=== PATIENT | female | born 1950 | race Caucasian/White ===

== ENCOUNTER → 2019-01-07 | Outpatient (CLI) | payer MEDICARE ==
[~2019-01-07] MED LIST: LEVO175T5 PO; TRAM50TA2 PO
== END | disposition home or self-care (01) ==
LOC: CFH 07:45
PROVIDERS: ATTEND Internal Medicine Cardiovascular Disease
DX: I08.3 Combined rheumatic disorders of mitral, aortic and tricuspid valves (principal); I48.0 Paroxysmal atrial fibrillation
CPT/HCPCS: 78452; 93017; 93306; A9502

== ENCOUNTER 2019-10-10 08:41 | Emergency (ER) | payer MEDICARE ==
[~2019-10-10] VITALS: Ht 162.6 cm; Wt 58.0 kg
[2019-10-10 08:42] VITALS: BP 159/50
[2019-10-10] MEDS ORDERED: OXYMETAZOLINE NASAL SPRAY 0.05%,30ML ONE (09:15)
[2019-10-10] MEDS ORDERED: TRANEXAMIC ACID 100 MG/ML, 10ML ONE (09:21)
[2019-10-10] MEDS ORDERED: OXYMETAZOLINE NASAL SPRAY 0.05%,30ML NAS ONE (09:30)
[2019-10-10 10:05] LABS: BASOPHILS # (AUTO) 0.04 x10^3/uL (0-0.1); BASOPHILS % (AUTO) 1 % (0-1); EOSINOPHILS # (AUTO) 0.22 x10^3/uL (0-0.4); EOSINOPHILS % (AUTO) 3 % (1-7); LYMPHOCYTES # (AUTO) 1.86 x10^3/uL (1-3.4); LYMPHOCYTES % (AUTO) 28 % (22-44); MD NO; MEAN CORPUSCULAR HEMOGLOBIN 30.4 pg (27.0-34.8); MEAN CORPUSCULAR HGB CONC 33.3 g/dL (32.4-35.8); MEAN CORPUSCULAR VOLUME 91.3 fL (80-100); MEAN PLATELET VOLUME 7.5 fL (7.4-10.4); MONOCYTES # (AUTO) 0.39 x10^3/uL (0.2-0.8); MONOCYTES % (AUTO) 6 % (2-9); NEUTROPHILS # (AUTO) 4.09 x10^3/uL (1.8-6.8); NEUTROPHILS % (AUTO) 62 % (42-75); PLATELET COUNT 326 x10^3/uL (130-400); RED BLOOD COUNT 4.71 x10^6/uL (3.82-5.3); RED CELL DISTRIBUTION WIDTH 13.5 % (9.6-15.2)
[2019-10-10 10:15] LABS: INTERNATIONAL NORMALIZED RATIO 1.09 (0.93-1.1); PROTHROMBIN TIME 11.4 Seconds (9.6-11.5)
== END 2019-10-10 11:20 | disposition home or self-care (01) ==
LOC: ED 11:00
DX: R04.0 Epistaxis (principal); I48.91 Unspecified atrial fibrillation
CPT/HCPCS: 36415; 85025; 85610; 99283

== ENCOUNTER 2020-06-14 13:08 | Emergency (ER) | payer MEDICARE ==
[~2020-06-14] VITALS: Ht 162.6 cm; Wt 56.4 kg
--- NOTE | 2020-06-14 13:35 | NUR ---
patient has a long history of nose bleeds and she had surgery with Dr Queen and then she again began bleeding. they are upset at thier struggles with this and are very short tempered stating they don't want to see anyone except the ENT MD. explained very politely that they will indeed need to be seen by our ER staff.
[2020-06-14 15:02] VITALS: BP 138/78
== END 2020-06-14 15:03 | disposition home or self-care (01) ==
LOC: ED 14:45
DX: R04.0 Epistaxis (principal); I48.91 Unspecified atrial fibrillation
CPT/HCPCS: 30901; 99284

== ENCOUNTER 2020-06-15 15:19 | Outpatient (CLI) | payer MEDICARE ==
[2020-06-15 16:20] LABS: MEAN CORPUSCULAR HEMOGLOBIN 31.3 pg (27.0-34.8); MEAN CORPUSCULAR HGB CONC 32.7 g/dL (32.4-35.8); MEAN CORPUSCULAR VOLUME 95.7 fL (80-100); MEAN PLATELET VOLUME 6.6 fL (7.4-10.4); PLATELET COUNT 318 x10^3/uL (130-400); RED BLOOD COUNT 4.11 x10^6/uL (3.82-5.3); RED CELL DISTRIBUTION WIDTH 12.5 % (9.6-15.2)
[2020-06-15 16:26] LABS: ANION GAP 4 mmol/L (5-15); CALCIUM 8.7 mg/dL (8.5-10.1); CHLORIDE 101 mmol/L (98-107); CREATININE 0.89 mg/dL (0.55-1.02); INTERNATIONAL NORMALIZED RATIO 1.03 (0.93-1.1); PROTHROMBIN TIME 10.6 Seconds (9.6-11.5)
[2020-06-16] MEDS ORDERED: FLEC100T PO (09:15)
[2020-06-16] MEDS ORDERED: DILT60TA30 PO (09:15)
== END 2020-06-15 23:59 | disposition home or self-care (01) ==
LOC: RAD 15:19
PROVIDERS: ATTEND Otolaryngology
DX: S03.03XA Dislocation of jaw, bilateral, initial encounter (principal); R04.0 Epistaxis; X58.XXXA Exposure to other specified factors, initial encounter; Y93.89 Activity, other specified; Y92.89 Other specified places as the place of occurrence of the external cause; Y99.8 Other external cause status
CPT/HCPCS: 36415; 70486; 80048; 85027; 85610; 85730

== ENCOUNTER 2020-06-16 08:17 | Day surgery (SDC) | payer MEDICARE ==
[~2020-06-16] VITALS: Ht 162.6 cm; Wt 54.9 kg
[2020-06-16] MEDS ORDERED: DILT60TA30 PO (09:15)
[2020-06-16] MEDS ORDERED: FLEC100T PO (09:15)
[2020-06-16 09:28] VITALS: BP 144/70
[2020-06-16] MEDS ORDERED: CHLORHEXIDINE 15 ML UDC MM ONE (09:30)
[2020-06-16] MEDS ORDERED: LACTATED RINGERS 1,000 ML IV SCH (10:00)
[2020-06-16] MEDS ORDERED: FENTANYL PF 100 MCG/2ML ONE ×3 (10:23→12:50)
[2020-06-16] MEDS ORDERED: LIDOCAINE-MPF 2% ,5ML ONE (10:24)
[2020-06-16] MEDS ORDERED: PROPOFOL 10 MG/ML, 20ML ONE (10:24)
[2020-06-16] MEDS ORDERED: OXYMETAZOLINE NASAL SPRAY 0.05%, 15ML ONE (10:25)
[2020-06-16] MEDS ORDERED: BACITRACIN ZINC OINT 500U/GM, 0.9 GM ONE (10:25)
[2020-06-16] MEDS ORDERED: LIDOCAINE 1%-EPI 1:100K, 20ML ONE (10:25)
[2020-06-16] MEDS ORDERED: EPINEPHRINE TOPICAL SOLN 1 MG/ML, 30ML ONE (10:25)
[2020-06-16] MEDS ORDERED: BACITRACIN 50,000 UNIT ONE (10:26)
[2020-06-16] MEDS ORDERED: FLUORESCEIN SODIUM 500 MG/5 ML ONE (10:26)
[2020-06-16] MEDS ORDERED: CEFAZOLIN 1,000 MG ONE (10:46)
[2020-06-16] MEDS ORDERED: EPHEDRINE 50 MG/ML, 1ML ONE (10:46)
[2020-06-16] MEDS ORDERED: SUCCINYLCHOLINE 20 MG/ML, 10ML ONE (10:46)
[2020-06-16] MEDS ORDERED: ONDANSETRON 2MG/ML, 2ML ONE (10:46)
[2020-06-16] MEDS ORDERED: DEXAMETHASONE 4 MG/ML, 1ML ONE ×2 (10:55)
[2020-06-16] MEDS ORDERED: OXYcodone 5 MG/5 ML ORAL.SOL UDC PO PRN (11:30)
[2020-06-16] MEDS ORDERED: ONDANSETRON 2MG/ML, 2ML IVPush PRN (11:30)
[2020-06-16] MEDS ORDERED: LABETALOL 5MG/ML, 20ML IV PRN (11:30)
[2020-06-16] MEDS ORDERED: ESMOLOL 100 MG/10 ML ONE (11:58)
[2020-06-16] MEDS ORDERED: OXYcodone 5 MG/5 ML ORAL.SOL UDC ONE (12:29)
[2020-06-16] MEDS: FENTANYL PF 100 MCG/2ML IV PRN ×4 (12:32→13:03)
== END 2020-06-16 17:25 | disposition home or self-care (01) ==
LOC: OUT 08:17
PROVIDERS: ATTEND Otolaryngology
DX: R04.0 Epistaxis (principal); Z11.59 Encounter for screening for other viral diseases; J32.0 Chronic maxillary sinusitis; I10 Essential (primary) hypertension; I48.0 Paroxysmal atrial fibrillation; E03.9 Hypothyroidism, unspecified; Z79.890 Hormone replacement therapy; Z79.899 Other long term (current) drug therapy; Z88.8 Allergy status to other drugs, medicaments and biological substances; Z98.1 Arthrodesis status; Z98.890 Other specified postprocedural states
CPT/HCPCS: 31241; 31254; 31256; 87635; 88304; 93005; J0330; J0690; J1100; J2405; J2704; J3010; J3490; J7120

== ENCOUNTER 2020-06-23 05:38 | Day surgery (SDC) | payer MEDICARE ==
[~2020-06-23] VITALS: Ht 162.6 cm; Wt 53.0 kg
[~2020-06-23 05:38] MED LIST changes: +DILT60TA30 PO; +FLEC100T PO
[2020-06-23] MEDS ORDERED: FENTANYL PF 100 MCG/2ML ONE (06:35)
[2020-06-23] MEDS ORDERED: MIDAZOLAM 1 MG/ML, 2ML ONE (06:35)
[2020-06-23] MEDS ORDERED: LACTATED RINGERS 1,000 ML IV SCH (06:47)
[2020-06-23 06:49] VITALS: BP 166/82
[2020-06-23] MEDS ORDERED: OXYMETAZOLINE NASAL SPRAY 0.05%, 15ML ONE (06:49)
[2020-06-23] MEDS ORDERED: NAPR1TAB PO (06:58)
[2020-06-23] MEDS ORDERED: ACET-1600 PO (06:58)
[2020-06-23] MEDS ORDERED: PLEASE ENTER HEIGHT AND WEIGHT MC SCH (07:00)
[2020-06-23] MEDS ORDERED: CHLORHEXIDINE 15 ML UDC MM ONE (07:00)
[2020-06-23] MEDS ORDERED: OXYcodone 5 MG/5 ML ORAL.SOL UDC PO PRN ×2 (07:30→08:00)
[2020-06-23] MEDS ORDERED: ACETAMINOPHEN 325 MG TABLET PO PRN ×2 (07:30→08:00)
[2020-06-23] MEDS ORDERED: PROMETHAZINE 12.5 MG SUPP PR PRN (07:30)
[2020-06-23] MEDS ORDERED: ONDANSETRON 2MG/ML, 2ML IVPush PRN (08:00)
[2020-06-23] MEDS ORDERED: HYDROmorphone 1 MG/ML, 1ML INJ IVPush PRN (08:00)
[2020-06-23] MEDS ORDERED: FENTANYL PF 100 MCG/2ML IV PRN (08:00)
[2020-06-23] MEDS ORDERED: PROMETHAZINE 25 MG/ML, 1ML IVPush PRN (08:00)
== END 2020-06-23 09:15 | disposition home or self-care (01) ==
LOC: OUT 05:38
PROVIDERS: ATTEND Otolaryngology
DX: R04.0 Epistaxis (principal); I10 Essential (primary) hypertension; I48.91 Unspecified atrial fibrillation; Z79.899 Other long term (current) drug therapy
CPT/HCPCS: 31237; J2250; J3010

== ENCOUNTER → 2021-02-02 | Outpatient (CLI) | payer MEDICARE ==
[~2021-02-02] MED LIST changes: +ACET-1600 PO; +NAPR1TAB PO; +OMNIPAQUE 350 MG/ML, 100ML BOTTLE ONE
== END | disposition home or self-care (01) ==
LOC: CFH 11:59
PROVIDERS: ATTEND Nurse Practitioner Family
DX: R10.32 Left lower quadrant pain (principal); M47.816 Spondylosis without myelopathy or radiculopathy, lumbar region; Z96.642 Presence of left artificial hip joint
CPT/HCPCS: 74177; Q9967